=== PATIENT | male | born 1990 | race African-American/Black ===

== ENCOUNTER 2021-11-18 01:22 | Emergency (ER) | payer OTHER ==
[2021-11-18 02:19] VITALS: BP 152/78; PULSE 89; TEMP 98; BMI 33.0
== END 2021-11-18 06:35 | disposition home or self-care (01) ==
LOC: JER 01:22
DX: S86.012A Strain of left Achilles tendon, initial encounter (principal); X50.0XXA Overexertion from strenuous movement or load, initial encounter
CPT/HCPCS: 99281-25